=== PATIENT | male | born 1955 ===

== ENCOUNTER 2023-01-02 11:00 | Inpatient (IN) | payer OTHER ==
[~2023-01-02] VITALS: Ht 160 cm; Wt 81.2 kg
[2023-01-02] MEDS ORDERED: DILTIAZEM 24HR240 MG PO (14:04)
[2023-01-02] MEDS ORDERED: TAMS0.4C PO (14:05)
[2023-01-05] MEDS ORDERED: FINASTERIDE5 MG (13:16)
[2023-01-05] MEDS ORDERED: CLOTRIMAZOLE-BE15 G1 (13:16)
[2023-01-05] MEDS ORDERED: ROSUVASTATIN CA10 MG (13:16)
[2023-01-05] MEDS ORDERED: DORZOLAMIDE-TIM10 ML (13:16)
[2023-01-05] MEDS ORDERED: TAFLUPROST (13:16)
== END 2023-01-06 14:47 | disposition home or self-care (01) | DRG 694 ==
LOC: O/R 01-04 05:58 → SURH 01-04 05:58 → SURG 01-04 07:00 → SURH 01-04 13:48
PROVIDERS: ADMIT Urology; ATTEND Urology
PROC: BT1DZZZ Fluoroscopy of Right Kidney, Ureter and Bladder (ICD-10-PCS; 2023-01-04)
PROC: 0TC08ZZ Extirpation of Matter from Right Kidney, Via Natural or Artificial Opening Endoscopic (ICD-10-PCS; principal; 2023-01-04 07:00)
DX: N21.0 Calculus in bladder (principal); N20.0 Calculus of kidney